=== PATIENT | male | born 1950 | race Caucasian/White ===

== ENCOUNTER 2016-12-18 20:02 | Emergency (ER) | payer MEDICARE ==
[2016-12-18] MEDS ORDERED: Hydromorphone 1 mg/ml Ampule IV ONE (20:33)
[2016-12-18] MEDS ORDERED: Phenergan 25 MG INJ IV ONE (20:33)
--- NOTE | 2016-12-18 20:40 | ERPHSYRPT ---
- History of Present Illness Time Seen by Provider: 12/18/16 20:23 Source: patient Exam Limitations: no limitations Physician History: ABOUT 80 MINUTES AGO AT HOME PT WAS WALKING UP STAIRS, LOST HIS BALANCE AND FELL BACKWARDS DOWN 15 STEPS WITH RESULTANT PAIN IN THE HEAD, BACK, CHEST, LEFT HIP, RIGHT KNEE AND ABDOMEN. PT STATES FOR THE PAST 2 DAYS HE HAS BEEN GENERALLY WEAK AND THIRSTY. PT DENIES FEVER, VOMITING, NUMBNESS. Allergies/Adverse Reactions: hydralazine Allergy (Intermediate, Verified 11/04/15 17:04) Rash Penicillins Allergy (Intermediate, Verified 11/04/15 17:04) Rash Home Medications: Aspirin 81 mg PO DAILY 11/18/13 [History] Clopidogrel Bisulfate 75 mg [PLAVIX 75 MG Tablet] 75 mg PO DAILY 11/18/13 [History] Metformin HCl 1000 mg [Glucophage 1000 MG] 1,000 mg PO BID 11/18/13 [History] Atorvastatin Calcium [Lipitor] 80 mg PO DAILY 11/04/15 [History] Glimepiride 1 mg PO DAILY 11/04/15 [History] Lisinopril 20 mg PO DAILY 11/04/15 [History] Metoprolol Tartrate 50 mg [Lopressor 50 MG] 50 mg PO BID 11/04/15 [History ] Niacin 1,000 mg PO BID 08/07/16 [History] Pantoprazole 40 mg [Protonix 40 mg IV] 40 mg PO DAILY 08/07/16 [History] Sucralfate 1 gm [Carafate 1 GM] 1 gm PO QID 08/07/16 [History] Vilazodone Hydrochloride [Viibryd] 40 mg PO DAILY 08/07/16 [History] Hx Tetanus, Diphtheria Vaccination/Date Given: Yes Hx Influenza Vaccination/Date Given: Yes Hx Pneumococcal Vaccination/Date Given: Yes - Review of Systems Constitutional: Weakness (GENERALIZED), Other (THIRST), No Fever Respiratory: Dyspnea (CHRONIC) Cardiac: Chest Pain Abdominal/Gastrointestinal: No Vomiting Musculoskeletal: Back Pain, Joint Pain (RIGHT KNEE) Neurological: Headache, No Sensory Changes All Other Systems: Reviewed and Negative - Past Medical History Pertinent Past Medical History: Yes Neurological History: No Pertinent History ENT History: No Pertinent History Cardiac History: High Cholesterol, Hypertension, Myocardial Infarction ([place]) Respiratory History: COPD, Lung Cancer Endocrine Medical History: Diabetes Type II Musculoskeletal History: No Pertinent History GI Medical History: No Pertinent History History: No Pertinent History Psycho-Social History: No Pertinent History Male Reproductive Disorders: No Pertinent History Other Medical History: pt has received chemo and radiation for lung cancer. - Past Surgical History Past Surgical History: Yes Neuro Surgical History: No Pertinent History Cardiac: CABG, Cardiac Catheterization, Cardiac Stent Respiratory: No Pertinent History Gastrointestinal: No Pertinent History Genitourinary: No Pertinent History Musculoskeletal: No Pertinent History Male Surgical History: No Pertinent History - Social History Smoking Status: Current every day smoker How long have you smoked: 50 years Exposure to second hand smoke: No Drug Use: none Patient Lives Alone: No - Nursing Vital Signs Nursing Vital Signs: Initial Vital Signs Temperature 101.0 F Temperature Source Rectal Pulse Rate 107 Respiratory Rate 22 Blood Pressure [] 104/57 Pain Intensity 3 - Luis Fernando Coma Score Best Eye Response (Luis Fernando): (4) open spontaneously Best Verbal Response ([place]): (5) oriented Best Motor Response (Luis Fernando): (6) obeys commands Luis Fernando Total: 15 - Physical Exam General Appearance: alert Head Injury: tenderness (MILD TENDERNESS OVER AN ABRASION ON THE SUPERIOR POSTERIOR ASPECT OF THE RIGHT PARIETUM WITH MILD EDEMA.) Eye Exam: PERRL/EOMI ENT Exam: airway nml, hearing grossly normal Neck Exam: trachea midline Respiratory/Chest Exam: chest tenderness (LEFT RIB TENDERNESS WITHOUT CREPITUS) Cardiovascular Exam: normal heart sounds Gastrointestinal Exam: soft, normal bowel sounds, tenderness (MILD LEFT SIDED ABDOMINAL TENDERNESS) Back Exam: other (MILD TENDERNESS OVER THE LEFT SIDE OF THE BACK ) Extremity Exam: tenderness (MILD RIGHT KNEE TENDERNESS OVER A 2 CM ABRASION) Peripheral Pulses: dorsalis-pedis (R): 1+, dorsalis-pedis (L): 1+ Neurologic Exam: alert, cooperative Skin Exam: warm, dry - Course Nursing assessment & vital signs reviewed: Yes EKG Interpreted by Me: RATE ([id number]), Sinus Tach, NORMAL AXIS, NORMAL INTERVALS, ST Elev (V1 & V2(DR DURAN(PT'S TRAVELER CHANGER) REVIEWED EKG AND STATES IT IS NOT A STEMI THAT IT IS OLD).) - Radiology Exams Right Knee X-ray Interpretation: Interpreted by me, No Fracture - CT Exams Head CT Interpretation: Tele-radiologist Report (NO ACUTE FINDINGS) Cervical Spine CT Interpretation: Tele-radiologist Report (NO ACUTE FINDINGS.) Chest CT Interpretation: Tele-radiologist Report (10 MM NONCALCIFIED NODULE WITHIN THE RIGHT UPPER LOBE POSTERIORLY. 7 MM NONCALCIFIED NODULE WITHIN THE RIGHT LOWER LOBE. PATCHY CONSOLIDATIONS WITHIN THE POSTERIOR ASPECT OF THE RIGHT LOWER LOBE, POSSIBLY MULTIFOCAL PNEUMONIA.) Abdomen/Pelvis CT Interpretation: Tele-radiologist Report (NO ACUTE ABDOMINAL OR PELVIC ABNORMALITY. PATCHY CONSOLIDATIONS WITHIN THE POSTERIOR RIGHT LOWER LOBE, LIKELY MULTIFOCAL PNEUMONIA.) Ordered Tests: Active Orders 24 hr Category Date Time Status Curator Of Collections STAT Care 12/18/16 20:32 Active Clean Catch Urine Specimen STAT Care 12/18/16 22:35 Active EKG-ER Only STAT Care 12/18/16 20:32 Active EKG-ER Only STAT Care 12/18/16 23:38 Active IV Insertion STAT Care 12/18/16 20:32 Active Oxygen-ED Only NASAL CANNULA 3 lpm Care 12/18/16 20:32 Active Pulse Oximetry (ED) STAT Care 12/18/16 20:32 Active ABDOMEN AND PELVIS W/0 CONTRAS [CT] Stat Exams 12/18/16 20:31 Taken CERVICAL SPINE WO CONTRAST [CT] Stat Exams 12/18/16 20:31 Taken CHEST WITHOUT CONTRAST [CT] Stat Exams 12/18/16 20:32 Taken HEAD WITHOUT CONTRAST [CT] Stat Exams 12/18/16 20:31 Taken KNEE (3 VIEWS) Stat Exams 12/18/16 23:13 Taken AMYLASE Stat Lab 12/18/16 20:40 Completed BLOOD CULTURE Stat Lab 12/19/16 00:01 Ordered CBC W DIFF Stat Lab 12/18/16 20:40 Completed CMP Stat Lab 12/18/16 20:40 Completed CULTURE,SPUTUM Stat Lab 12/19/16 00:01 Uncollected CULTURE,URINE Stat Lab 12/18/16 20:32 Received LIPASE Stat Lab 12/18/16 20:40 Completed MAGNESIUM Stat Lab 12/18/16 20:40 Completed Manual Differential NC Stat Lab 12/18/16 20:40 Completed PROTIME WITH INR Stat Lab 12/18/16 20:40 Completed PTT Stat Lab 12/18/16 20:40 Completed TROPONIN Stat Lab 12/18/16 20:50 Completed UA W/ MICROSCOPIC Stat Lab 12/18/16 20:32 Completed Medication Summary Generic Name Dose Route Start Last Admin Trade Name Windy PRN Reason Stop Dose Admin Sodium Chloride 1,000 mls @ 100 mls/hr 12/18/16 20:45 12/18/16 20:48 Sodium Chloride 0.9% 1000 Ml IV 01/17/17 20:44 100 mls/hr .Q10H HARMAN Administration Discontinued Medications Generic Name Dose Route Start Last Admin Trade Name Windy PRN Reason Stop Dose Admin Hydromorphone HCl 0.5 mg 12/18/16 20:33 12/18/16 20:47 Hydromorphone 1 Mg/Ml Ampule IV 12/18/16 20:34 0.5 mg STAT ONE Administration Hydromorphone HCl Confirm 12/18/16 20:44 Hydromorphone 1 Mg/Ml Ampule Administered 12/18/16 20:45 Dose 1 mg .ROUTE .STK-MED ONE Levofloxacin/Dextrose 500 mg in 100 mls @ 100 mls/hr 12/18/16 23:03 12/18/16 23:10 Levofloxacin 500mg/100ml D5w IV 12/19/16 00:02 100 mls/hr STAT STA Administration Levofloxacin/Dextrose Confirm 12/18/16 23:09 Levofloxacin 500mg/100ml D5w Administered 12/18/16 23:10 Dose 500 mg in 100 mls @ ud IV .STK-MED ONE Magnesium Sulfate/Dextrose 100 mls @ 200 mls/hr 12/18/16 23:14 Magnesium 1 Gm / 100 Ml D5w IV 12/18/16 23:43 STAT ONE Magnesium Sulfate/Dextrose Confirm 12/18/16 23:22 Magnesium 1 Gm / 100 Ml D5w Administered 12/18/16 23:23 Dose 100 mls @ ud IV .STK-MED ONE Levalbuterol HCl 1.25 mg 12/19/16 00:01 Xopenex 1.25 Mg/0.5 Ml Ud Nebule IH 12/19/16 00:02 STAT ONE Promethazine HCl 6.25 mg 12/18/16 20:33 12/18/16 20:48 Phenergan 25 Mg Inj IV 12/18/16 20:34 6.25 mg STAT ONE Administration Promethazine HCl Confirm 12/18/16 20:44 Phenergan 25 Mg Inj Administered 12/18/16 20:45 Dose 25 mg .ROUTE .STK-MED ONE Lab/Rad Data: Laboratory Result Diagrams 12/18/16 20:40 12/18/16 20:40 Laboratory Results 12/18/16 12/18/16 12/18/16 Range/Units 20:50 20:40 20:40 WBC (4.0-10.5) K/mm3 RBC (4.1-5.6) M/mm3 Hgb (12.5-18.0) gm/dl Hct (42-50) % MCV (78-100) fl MCH (26-32) pg MCHC (32-36) g/dl RDW (11.5-14.0) % Plt Count (150-450) K/mm3 MPV (6-9.5) fl INR 1.21 (0.8-3.0) APTT 34.8 (24.1-36.1) SECONDS Sodium 136 (136-145) mEq/L Potassium 3.8 (3.5-5.1) mEq/L Chloride 102 (98-107) mEq/L Carbon Dioxide 20.5 L (21-32) mEq/L Anion Gap 16.8 H (5-15) MEQ/L BUN 19 (9-20) mg/dL Creatinine 1.68 H (0.55-1.30) mg/dl Estimated GFR 44 ML/MIN Glucose 109 (70-110) MG/DL Calcium 8.7 (8.5-10.1) mg/dL Magnesium 1.1 L (1.8-2.4) mg/dL Total Bilirubin 0.30 (0.2-1.0) mg/dL AST 25 (15-37) U/L ALT 14 (12-78) U/L Alkaline Phosphatase 72 (46-116) U/L Troponin I 0.061 H* (0.000-0.056) ng/ml Serum Total Protein 7.5 (6.4-8.2) gm/dL Albumin 1.7 L (3.4-5.0) g/dL Amylase 37 (25-115) U/L Lipase 71 L (73-393) U/L Ur Collection Type Urine Color (YELLOW) Urine Appearance (CLEAR) Urine pH (5-6) Ur Specific [place] (1.005-1.025) Urine Protein (Negative) Urine Glucose (UA) (NEGATIVE) mg/dL Urine Ketones (NEGATIVE) Urine Nitrite (NEGATIVE) Urine Bilirubin (NEGATIVE) Urine Urobilinogen (0-1) mg/dL Urine WBC (Auto) (NEGATIVE) Urine RBC (Auto) (0-5) [place]/ul Urine Microscopic WBC (0-5) /HPF Ur Epithelial Cells (FEW) /HPF Urine Bacteria (NEGATIVE) /HPF Specimen Received 12/18/16 12/18/16 Range/Units 20:40 20:32 WBC 15.6 H (4.0-10.5) K/mm3 RBC 3.88 L (4.1-5.6) M/mm3 Hgb 10.9 L (12.5-18.0) gm/dl Hct 35.1 L (42-50) % MCV 90.5 (78-100) fl MCH 28.0 (26-32) pg MCHC 31.1 L (32-36) g/dl RDW 14.9 H (11.5-14.0) % Plt Count 213 (150-450) K/mm3 MPV 8.7 (6-9.5) fl INR (0.8-3.0) APTT (24.1-36.1) SECONDS Sodium (136-145) mEq/L Potassium (3.5-5.1) mEq/L Chloride (98-107) mEq/L Carbon Dioxide (21-32) mEq/L Anion Gap (5-15) MEQ/L BUN (9-20) mg/dL Creatinine (0.55-1.30) mg/dl Estimated GFR ML/MIN Glucose (70-110) MG/DL Calcium (8.5-10.1) mg/dL Magnesium (1.8-2.4) mg/dL Total Bilirubin (0.2-1.0) mg/dL AST (15-37) U/L ALT (12-78) U/L Alkaline Phosphatase (46-116) U/L Troponin I (0.000-0.056) ng/ml Serum Total Protein (6.4-8.2) gm/dL Albumin (3.4-5.0) g/dL Amylase (25-115) U/L Lipase (73-393) U/L Ur Collection Type CLEAN CATCH Urine Color YELLOW (YELLOW) Urine Appearance CLOUDY (CLEAR) Urine pH 6.0 (5-6) Ur Specific [place] 1.025 (1.005-1.025) Urine Protein >=300 (Negative) Urine Glucose (UA) 250 (NEGATIVE) mg/dL Urine Ketones NEGATIVE (NEGATIVE) Urine Nitrite NEGATIVE (NEGATIVE) Urine Bilirubin NEGATIVE (NEGATIVE) Urine Urobilinogen 1 (0-1) mg/dL Urine WBC (Auto) NEGATIVE (NEGATIVE) Urine RBC (Auto) MODERATE (0-5) [place]/ul Urine Microscopic WBC 25-50 (0-5) /HPF Ur Epithelial Cells FEW (FEW) /HPF Urine Bacteria FEW (NEGATIVE) /HPF Specimen Received [id number] - Progress Discussed with Dr.: Other (SPOKE WITH DR LAU(HOSPITALIST AT [facility])([id number]) WHO ACCEPTED PT FOR TRANSFER TO [facility] A DIRECT ADMISSION.) - Departure Time of Disposition: 00:09 Departure Disposition: Transfer ([facility]) Clinical Impression: FALL, RLL PNEUMONIA, HEAD CONTUSION, BACK STRAIN, CHEST & ABDOMINAL PAIN, ABRASION OF RIGHT KNEE, HYPOMAGNESEMIA, ELEVATED TROPONIN Condition: Stable Critical Care Time: Yes Critical Care Time(excluding separately billable procedures): 30-74 minutes Referrals: OLY SANZ [Primary Care Provider] -
[2016-12-18] MEDS ORDERED: Hydromorphone 1 mg/ml Ampule ONE (20:44)
[2016-12-18] MEDS ORDERED: Phenergan 25 MG INJ ONE (20:44)
[2016-12-18] MEDS ORDERED: Sodium Chloride 0.9% 1000 ML 1,000 ML ONE (20:44)
[2016-12-18] MEDS ORDERED: Sodium Chloride 0.9% 1000 ML 1,000 ML IV SCH (20:45)
[2016-12-18 20:52] LABS: Mean Cell Volume 90.5 fl (78-100); Mean Platelet Volume 8.7 fl (6-9.5); Platelet Count 213 K/mm3 (150-450); Red Blood Count 3.88 M/mm3 (4.1-5.6); Red Cell Distribution Width 14.9 % (11.5-14.0); White Blood Count 15.6 K/mm3 (4.0-10.5)
[2016-12-18 21:08] LABS: INR 1.21 (0.8-3.0); PROTIME 13.5 SECONDS (8.83-12.87)
[2016-12-18 21:10] LABS: PTT 34.8 SECONDS (24.1-36.1)
[2016-12-18 21:21] LABS: ALBUMIN 1.7 g/dL (3.4-5.0); ANION GAP 16.8 MEQ/L (5-15); BILIRUBIN,TOTAL 0.3 mg/dL (0.2-1.0); Carbon Dioxide 20.5 mEq/L (21-32); MAGNESIUM 1.1 mg/dL (1.8-2.4); Potassium 3.8 mEq/L (3.5-5.1); Total Protein 7.5 gm/dL (6.4-8.2)
[2016-12-18 22:59] LABS: Collection Type CLEAN CATCH
[2016-12-18 23:01] LABS: Bacteria FEW /HPF (NEGATIVE); COMPLETE URINE MICROSCOPIC? YES; Epithelial Cells FEW /HPF (FEW); WBC 25-50 /HPF (0-5)
[2016-12-18 23:02] LABS: ADD URINE CULTURE? YES (NO)
[2016-12-18] MEDS ORDERED: Levofloxacin 500MG/100ML D5W 500 MG/100 ML BAG IV STA (23:03)
[2016-12-18] MEDS ORDERED: Levofloxacin 500MG/100ML D5W 500 MG/100 ML BAG IV ONE (23:09)
[2016-12-18] MEDS ORDERED: Magnesium 1 Gm / 100 Ml D5W*** 100 ML IV ONE ×2 (23:14→23:22)
[2016-12-19] MEDS ORDERED: Xopenex 1.25 MG/0.5 ML UD NEBULE IH ONE ×2 (00:01→00:12)
[2016-12-19] MEDS ORDERED: Sodium Chloride 3 ML UD NEBULES IH ONE (00:12)
[2016-12-19 00:20] VITALS: BP 107/75; PULSE 102; O2SAT 98
[2016-12-19 01:06] LABS: Total Cells Counted 100
[2016-12-19 01:07] LABS: Platelet Estimate NORMAL (NORMAL)
--- NOTE | 2016-12-19 15:03 | XRAY ---
Exam: CT of the head without IV contrast from 12/18/2016. CTDI: 50.14 Comparison: None. Indication: Patient fell backwards down stairs, complains of head, back, neck, abdomen, and chest pain. Technique: Non-IV contrast axial images were obtained through the brain. Reconstructed coronal and sagittal images were created and reviewed. Findings: The ventricles appear of unremarkable size and configuration. No focal mass effect or midline shift is seen. No acute intracranial bleed or abnormal extra-axial fluid collection is seen. No focal low attenuation lesion is seen to suggest an infarct within the major cerebral or cerebellar territorial tribulation. I believe there are some mild chronic bilateral periventricular small vessel ischemic changes. There is occasional prominence of the cortical sulci. The calvarium of the skull appears intact revealing no fracture or other significant lesion. Both maxillary sinuses are completely opacified. Also, there is extensive soft tissue density and mucosal thickening within the ethmoid sinus complexes bilaterally. Minor peripheral mucosal thickening is seen within the sphenoid sinus. No air-fluid levels are seen. There is some minimal mucosal thickening or fluid within the posterior dependent portion of the left mastoid air cells on axial image #9 and #10. This may be chronic. There is a paucity of air cells within the right mastoid sinus. I believe there is some soft tissue density or fluid within the middle ear cavity on the right. See axial images #13 and #14. There is also some mild soft tissue density or fluid within the minimal mastoid sinus on the right. Impression: 1. No acute intracranial bleed or other acute intracranial brain process is seen. 2. Extensive paranasal sinus disease is seen within both maxillary sinuses and ethmoid sinuses. This may be chronic. However, correlate clinically. 3. Soft tissue density or fluid is seen within the right middle ear cavity. Correlate clinically. I also believe there is a paucity of right mastoid sinus air cells with a small amount of fluid/soft tissue density within both mastoids, right greater than left. Correlate clinically.
--- NOTE | 2016-12-19 15:46 | XRAY ---
Exam: CT of the cervical spine without IV contrast from 12/18/2016. CTDI: 138.51 Comparison: None. Indication: Patient fell backwards down steps, complains of neck pain and weakness. Technique: Non-IV contrast axial images were obtained through the cervical spine. Reconstructed coronal and sagittal images were created and reviewed. Findings: I see no evidence of acute cervical spine fracture, AP traumatic subluxation, or prevertebral soft tissue swelling. There is a suggestion of slight retrolisthesis of C3 with respect to C2 and C4 on the midline sagittal images, but I believe this is probably due to the significant degenerative joint disease. Mild to moderate anterior lateral vertebral endplate spurring is seen throughout the cervical spine. The cervical interspaces are not significantly narrowed. However, I also note scattered facet joint degenerative changes at C2-C3 (left greater than right) as well as marked C4-C5 facet joint arthritis on the right and mild bilateral C5C6 facet joint osteoarthritis. I believe the significant right-sided C4-C5 facet joint spurring is causing marked compromise of the right C4-C5 neural foramen. There is also moderate narrowing of the right C3-C4 neural foramen. Advanced degenerative change of the right C3-C4 uncovertebral joint is seen. I also note mild degenerative change involving the right C4-C5 uncovertebral joint. Slight convexity of the mid cervical spine toward the left is seen centered at the upper aspect of C5 on the coronal images. The thyroid gland appears grossly unremarkable. The right internal jugular vascular line is partially seen. Some emphysematous changes are noted within both visualized lung apices. Bilateral carotid artery vascular calcification is seen. Impression: 1. No acute cervical spine fracture or AP traumatic subluxation is seen. 2. Moderate diffuse degenerative joint disease is seen throughout the cervical spine, as discussed above. This probably accounts for slight retrolisthesis of C3 with respect to C2 and C4. I note moderate narrowing of the right C3-C4 neural foramen and marked narrowing of the right C4-C5 neural foramen secondary to the degenerative joint disease and spurring..
--- NOTE | 2016-12-19 17:02 | XRAY ---
Exam: CT of the chest without IV contrast from 12/18/2016. CTDI: 17.77 Comparison: AP portable chest film from 11/18/2013. Indication: Patient fell backwards down stairs, complains of back and chest pain. Technique: Non-IV contrast axial images were obtained through the chest. Reconstructed coronal and sagittal images were created and reviewed. Findings: The CT loss mitigation specialist image reveals a right-sided portacatheter with the tip extending into the SVC. Multiple sternal wires are seen consistent with prior CABG. There is minimal elevation of the right hemidiaphragm. On the CT images, the heart size is normal without pericardial effusion. Extensive upper [place] coronary artery vascular calcification is seen. I also note some atherosclerotic vascular calcification within the thoracic aorta and its branches. No aneurysm is seen. Some scattered, small, probable reactive mediastinal lymph nodes are noted. A few granulomatous calcifications are seen within the AP window on the left and the subcarinal region on axial image #28. I note some mild patchy infiltrate within the posterior aspect of the right upper lobe, and to a greater extent, within the posterior aspect of the right lower lobe. I favor that this is due to multifocal pneumonia rather than parenchymal lung contusion with pulmonary hemorrhage. I see no pleural effusion or fracture ribs on this side. In addition, on axial image #22 there is a 12 mm noncalcified nodule within the posterior aspect of the right upper lobe. Comparison with any previous images is recommended. There is also a questionable 6 mm nodule posterolaterally within the right upper lobe in a bit more superior position on axial image #16. Within the right lower lobe posteriorly on axial image #31 there is a 0.8 cm in diameter lung nodule. There is also a 0.8 cm in diameter oval-shaped nodular density posterior laterally within the right lower lobe on axial image #29. A few small granulomatous calcifications are seen within the lingula. In addition, there is some focal scarring or infiltrate/atelectasis at the anterior medial aspect of the left upper lobe. Pneumonia cannot be completely excluded at this site as well. No soft tissue lung nodules are seen within the left lung. The lungs are mildly emphysematous. The central airways are patent. No pneumothorax or pleural fluid is seen. There is a 4.5 cm x 3.8 cm oval-shaped, fatty mass within the right adrenal gland measuring -37.4 Hounsfield units. This probably represents an adrenal myelolipoma. The remainder of the adrenal glands appears unremarkable. Some scattered granulomatous calcifications are seen within the liver and spleen. No other acute process is seen within the upper abdomen. No acute fracture or aggressive bone lesion is seen. There is minimal anterior wedge compression of the T8 vertebral body which appears old. See sagittal image #78. Impression: 1. There is multifocal patchy airspace infiltrate within the posterior lateral aspect of the right lower lobe. I favor that this is due to right lower lobe pneumonia rather than right lower lobe pulmonary hemorrhage. There is no associated fracture or pleural effusion. Correlate clinically. In addition, I believe there is also some subtle infiltrate within the posterior aspect of the right upper lobe. There is probable scarring or atelectasis at the anterior medial left upper lobe. However, pneumonic infiltrate is also possible. 2. Pulmonary emphysema. 3. There are at least 2, and possibly up to 4, soft tissue nodules within the right upper lobe and right lower lobe, as described above. Malignant/metastatic lung disease is suggested by this appearance. Follow-up will be needed. Comparison with any previous chest CT studies would be helpful. 5. 4.5 cm x 3.8 cm probable myolipoma within the right adrenal gland measuring -37.4 Hounsfield units.
--- NOTE | 2016-12-19 17:21 | XRAY ---
Exam: CT of the abdomen and pelvis without IV contrast from 12/18/2016. CTDI: 20.45 Comparison: None. Indication: Patient fell backwards down stairs, complains of back and abdominal pain. Technique: Non - IV contrast axial images were obtained through the abdomen and pelvis. Reconstructed coronal and sagittal images were created and reviewed. Findings: The visualized lung bases again reveal multifocal patchy airspace infiltrates within the right lower lobe suspicious for pneumonia. Correlate clinically. The liver is of normal size and reveals some scattered calcified granulomas consistent with old granulomatous disease. No liver mass or biliary duct distention is seen on this non-IV contrast study. The gallbladder appears grossly unremarkable and reveals no dense calcification within it. The spleen is of normal size and reveals some scattered calcified granulomas as well. The pancreas appears normal. I again note an oval-shaped fatty mass measuring 4.6 mm is by 3.3 cm within the right adrenal gland. This measures -34.6 Hounsfield units. It is likely at this represents an adrenal myelolipoma. The left adrenal gland appears unremarkable. The kidneys are unremarkable size and reveal no hydronephrosis, definite mass, or renal calculi. Moderate atherosclerotic vascular calcification is seen within the abdominal aorta and its branches. The distal abdominal aorta just above the aortic bifurcation dilates slightly to 3.0 cm in width and 3.0 cm in depth. See coronal image #32 and sagittal image #105. No abnormal retroperitoneal lymphadenopathy is seen. No free intraperitoneal air is evident. The anterior abdominal wall appears intact. The bowel is not distended. Distal descending and sigmoid colon diverticulosis without evidence of diverticulitis is seen. The appendix appears normal within the right lower quadrant. No free fluid is seen. Pelvic lymph nodes are not enlarged. The urinary bladder appears unremarkable. The seminal vesicles appear normal. There is some calcification within the posterior central aspect of the prostate gland. The prostate gland measures 5.0 cm in width and 4.4 cm in AP depth on axial image #78. This is slightly enlarged. Iliac artery and common femoral artery vascular calcification is seen. The inguinal regions appear unremarkable. No acute fracture or suspicious bone lesion is seen. There is mild chronic appearing compression deformity of the superior aspect of the L5 vertebral body on the sagittal images. See sagittal image #106. This appears old. Moderate anterior lateral vertebral endplate spurring is seen within the lower thoracic and upper lumbar spine. Impression: 1. I again note multiple focal patchy airspace disease within the right lower lobe most suggestive of pneumonia. 2. I believe there is minimal focal aneurysmal enlargement of the distal abdominal aorta just above the aortic bifurcation which measures 3.0 cm in width and 3.0 cm in AP depth. 3. 4.6 cm x 3.3 cm probable right adrenal myelolipoma. 4. Mild distal colonic diverticulosis without evidence of diverticulitis. 5. Slight enlargement of the prostate gland. 6.. No acute intra-abdominal or pelvic process is seen. No free fluid or free air is noted. 7. No acute fracture is identified.
--- NOTE | 2016-12-19 19:55 | XRAY ---
Exam: Portable 3 view study of the right knee from 12/18/2016. Comparison: None. Indication: Fall. Findings: AP, internal oblique, and crosstable lateral images of the right knee were obtained. I see no acute fracture, dislocation, or suprapatellar joint effusion. There is mild narrowing of the medial compartment of the right knee joint with associated small osteophytes medially. The lateral compartment of the right knee joint appears well preserved. The patellofemoral joint appears unremarkable on the crosstable lateral view. Moderate atherosclerotic vascular calcification is seen posterior to the right knee. Impression: 1. No acute right knee fracture, dislocation, or suprapatellar joint effusion is seen. 2. Mild medial compartment osteoarthritis of the right knee. 3. Moderate atherosclerotic vascular calcification is seen posterior to the right knee within the distal superficial femoral artery, popliteal artery, and proximal calf arteries.
== END 2016-12-19 00:43 | disposition short-term general hospital (02) ==
LOC: ED 20:02
DX: J18.8 Other pneumonia, unspecified organism (principal); S00.93XA Contusion of unspecified part of head, initial encounter; S16.1XXA Strain of muscle, fascia and tendon at neck level, initial encounter; S39.012A Strain of muscle, fascia and tendon of lower back, initial encounter; S29.012A Strain of muscle and tendon of back wall of thorax, initial encounter; R07.89 Other chest pain; R10.9 Unspecified abdominal pain; S80.211A Abrasion, right knee, initial encounter; E83.42 Hypomagnesemia; R79.89 Other specified abnormal findings of blood chemistry; W10.9XXA Fall (on) (from) unspecified stairs and steps, initial encounter
CPT/HCPCS: 36000; 36415; 70450; 71250; 72125; 73562; 74176; 80053; 81000; 82150; 83690; 83735; 84484; 85025; 85610; 85730; 87040; 87086; 93005; 93041; 94640; 96360; 96361; 96365; 96367; 96374; 96375; 99285; J1170; J1956; J2550; J3475; A9270-GY

== ENCOUNTER 2017-01-24 21:14 | Emergency (ER) | payer MEDICARE ==
[2017-01-24] MEDS ORDERED: Sodium Chloride 0.9% 1000 ML 1,000 ML IV STA ×2 (21:27→23:30)
[2017-01-24] MEDS ORDERED: Sodium Chloride 0.9% 1000 ML 1,000 ML ONE ×2 (21:42→23:47)
[2017-01-24 21:43] LABS: Mean Corpuscular Hemoglobin 28.2 pg (26-32); Mean Platelet Volume 8.4 fl (6-9.5); Platelet Count 201 K/mm3 (150-450); Red Blood Count 3.33 M/mm3 (4.1-5.6); Red Cell Distribution Width 15.9 % (11.5-14.0); White Blood Count 16.8 K/mm3 (4.0-10.5)
--- NOTE | 2017-01-24 21:59 | ERPHSYRPT ---
- History of Present Illness Time Seen by Provider: 01/24/17 21:59 Patient Subjective Stated Complaint: PT STATES HE BEGAN HAVING VOMITING, DIARRHEA, AND ABDOMINAL PAIN THIS EVENING AROUND 1830. PT REPORTS DIARRHEA STOOLS X5 TIMES AND VOMITING ONE TIME. PT ALSO COMPLAINS OF PAIN TO THE LUQ OF THE ABDOMEN. Triage Nursing Assessment: PT IS AOX3, ARRIVED PER EMS, PT IS CHRONICALLY SHORT OF BREATH, LUNG SOUNDS ARE COARSE THROUGHOUT, ANTERIOR AND POSTERIOR. SKIN IS PALE AND DRY. ABDOMEN IS SOFT AND NON TENDER, BOWEL SOUNDS PRESENT AND NORMOACTIVEX4. PULSES ARE STRONG AND EQUAL. 2+ PEDAL EDEMA IS PRESENT BILATERALLY. THERE IS DRIED,YELLOW VOMITUS PRESENT ON THE PT FACE AND NECK. ALSO SHORTS APPEAR TO BE SOILED WITH LOOSE, BROWN STOOL. PT HAS POOR OVERALL HYGIENE. Physician History: 66-year-old male with significant past medical history of left-sided lung cancer , hypertension, coronary artery disease. Was in his usual state of health since yesterday, started having cough, fevers, chills, nausea, vomiting and diarrhea, so he was brought into the emergency room at [facility] Timing/Duration: yesterday Activities at Onset: none Associated Symptoms: diarrhea, fever/chills, fatigue, nausea, shortness of breath, vomiting, weakness Previous symptoms: same symptoms as today, recent hospitalization Allergies/Adverse Reactions: hydralazine Allergy (Intermediate, Verified 01/20/17 15:54) Rash Penicillins Allergy (Intermediate, Verified 01/20/17 15:54) Rash ezetimibe [From Zetia] Allergy (Verified 01/20/17 15:54) Rash rosuvastatin [From Crestor] Adverse Reaction (Verified 01/20/17 15:54) Home Medications: Albuterol Sulfate 2.5 mg IH QID 01/24/17 [History] Aspirin 81 gm Chew [Baby Aspirin 81 mg Chew] 81 mg PO DAILY 01/24/17 [ History] Atorvastatin Calcium 80 mg PO HS 01/24/17 [History] Clonidine HCl 0.1 mg [Catapres 0.1 MG] 0.1 mg PO TID 01/24/17 [History] Clopidogrel Bisulfate 75 mg [PLAVIX 75 MG Tablet] 75 mg PO DAILY 01/24/17 [History] Fluticasone Propionate [Flovent Diskus] 50 mcg IH UD PRN 01/24/17 [History] Fluticasone/Vilanterol [Breo Ellipta 200-25 Mcg INH] 1 each IH UD PRN 01/24/17 [ History] Furosemide 20 mg [Lasix 20 mg] 20 mg PO BID 01/24/17 [History] Glimepiride 1 mg PO DAILY 01/24/17 [History] Lisinopril 10 mg [Zestril 10 MG] 10 mg PO BID 01/24/17 [History] Metformin HCl [Fortamet] 1,000 mg PO BID 01/24/17 [History] Metoprolol Tartrate 50 mg [Lopressor 50 MG] 50 mg PO DAILY 01/24/17 [ History] Niacin [Niacin ER] 1,000 mg PO BID 01/24/17 [History] Oxycodone HCl/Acetaminophen [Oxycodone-Acetaminophen 5-325] 1 each PO UD [History] Pantoprazole 40 mg [Protonix 40 mg IV] 40 mg IV DAILY 01/24/17 [History] Potassium Chloride 10 Meq Tab* [Klor Con 10 MEQ] 10 meq PO BID 01/24/17 [ History] Sucralfate 1 gm [Carafate 1 GM] 1 gm PO QID 01/24/17 [History] Vilazodone Hydrochloride [Viibryd] 1 each PO DAILY 01/24/17 [History] Hx Tetanus, Diphtheria Vaccination/Date Given: Yes Hx Influenza Vaccination/Date Given: Yes Hx Pneumococcal Vaccination/Date Given: Yes Immunizations Up to Date: Yes - Review of Systems Constitutional: Fever, Chills, Fatigue, Weakness Eyes: No Symptoms Ears, Nose, & Throat: No Symptoms Respiratory: Cough, Dyspnea, Dyspnea on Exertion (SINGH) Cardiac: No Chest Pain, No Edema, No Syncope Abdominal/Gastrointestinal: Abdominal Pain, Nausea, Vomiting, Diarrhea Genitourinary Symptoms: No Dysuria Musculoskeletal: No Back Pain, No Neck Pain Skin: No Rash Neurological: No Dizziness, No Focal Weakness, No Sensory Changes Psychological: No Symptoms Endocrine: No Symptoms All Other Systems: Reviewed and Negative - Past Medical History Pertinent Past Medical History: Yes Neurological History: No Pertinent History ENT History: No Pertinent History Cardiac History: High Cholesterol, Hypertension, Myocardial Infarction ([place]) Respiratory History: COPD, Lung Cancer Endocrine Medical History: Diabetes Type II Musculoskeletal History: No Pertinent History GI Medical History: No Pertinent History History: No Pertinent History Psycho-Social History: No Pertinent History Male Reproductive Disorders: No Pertinent History Other Medical History: pt has received chemo and radiation for lung cancer. - Past Surgical History Past Surgical History: Yes Neuro Surgical History: No Pertinent History Cardiac: CABG, Cardiac Catheterization, Cardiac Stent Respiratory: No Pertinent History Gastrointestinal: No Pertinent History Genitourinary: No Pertinent History Musculoskeletal: No Pertinent History Male Surgical History: No Pertinent History - Social History Smoking Status: Current every day smoker How long have you smoked: 50 Exposure to second hand smoke: No Drug Use: none Patient Lives Alone: No - Nursing Vital Signs Nursing Vital Signs: Initial Vital Signs Temperature 97.9 F Temperature Source Oral Pulse Rate 96 Respiratory Rate 20 Blood Pressure [] 118/70 Pain Intensity 0 - Physical Exam General Appearance: mild distress, alert Eye Exam: PERRL/EOMI, eyes nml inspection Ears, Nose, Throat Exam: normal ENT inspection, dry mucous membranes Neck Exam: normal inspection, non-tender, supple, full range of motion Respiratory Exam: diminished breath sounds, crackles/rales, rhonchi, wheezing, No respiratory distress Cardiovascular Exam: regular rate/rhythm, normal heart sounds Gastrointestinal/Abdomen Exam: soft, No tenderness, No mass Back Exam: normal inspection, No CVA tenderness, No vertebral tenderness Extremity Exam: normal inspection, normal range of motion, pelvis stable Neurologic Exam: alert, oriented x 3, cooperative, sensation nml, No motor deficits, No sensory deficit Skin Exam: normal color, warm, dry SpO2: 92 - Course Nursing assessment & vital signs reviewed: Yes EKG Interpreted by Me: Sinus Rhythm - Radiology Exams Chest X-ray Interpretation: Reviewed by me (bibasilar infiltrate) Ordered Tests: Active Orders 24 hr Category Date Time Status EKG-ER Only STAT Care 01/24/17 21:27 Active CHEST 1 VIEW (PORTABLE) Stat Exams 01/24/17 21:28 Completed AMYLASE Stat Lab 01/24/17 21:41 Completed CBC W DIFF Stat Lab 01/24/17 21:41 Completed CMP Stat Lab 01/24/17 21:41 Completed LIPASE Stat Lab 01/24/17 21:41 Completed Lactic Acid Stat Lab 01/24/17 21:41 Completed Manual Differential NC Stat Lab 01/24/17 21:41 Completed TROPONIN Stat Lab 01/24/17 21:41 Completed UA W/RFX UR CULTURE Stat Lab 01/24/17 21:28 Ordered Urine Triage Profile Stat Lab 01/24/17 21:28 Ordered Medication Summary Discontinued Medications Generic Name Dose Route Start Last Admin Trade Name Windy PRN Reason Stop Dose Admin Sodium Chloride 1,000 mls @ 999 mls/hr 01/24/17 21:27 01/24/17 21:43 Sodium Chloride 0.9% 1000 Ml IV 01/24/17 22:27 999 mls/hr .Q1H1M STA Administration Sodium Chloride Confirm 01/24/17 21:42 Sodium Chloride 0.9% 1000 Ml Administered 01/24/17 21:43 Dose 1,000 mls @ ud .ROUTE .STK-MED ONE Ceftriaxone Sodium/Dextrose 1 g in 50 mls @ 100 mls/hr 01/24/17 22:11 22:43 Rocephin 1 Gm-D5w 50 Ml Bag IV 01/24/17 22:40 100 mls/hr STAT STA Administration Ceftriaxone Sodium/Dextrose Confirm 01/24/17 22:42 Rocephin 1 Gm-D5w 50 Ml Bag Administered 01/24/17 22:43 Dose 1 g in 50 mls @ ud IV .STK-MED ONE Lab/Rad Data: Laboratory Result Diagrams 01/24/17 21:41 01/24/17 21:41 Laboratory Results 01/24/17 01/24/17 01/24/17 Range/Units 21:41 21:41 21:41 WBC 16.8 H (4.0-10.5) K/mm3 RBC 3.33 L (4.1-5.6) M/mm3 Hgb 9.4 L (12.5-18.0) gm/dl Hct 31.3 L (42-50) % MCV 94.0 (78-100) fl MCH 28.2 (26-32) pg MCHC 30.0 L (32-36) g/dl RDW 15.9 H (11.5-14.0) % Plt Count 201 (150-450) K/mm3 MPV 8.4 (6-9.5) fl Sodium 142 (136-145) mEq/L Potassium 4.0 (3.5-5.1) mEq/L Chloride 108 H (98-107) mEq/L Carbon Dioxide 21.9 (21-32) mEq/L Anion Gap 16.4 H (5-15) MEQ/L BUN 20 (9-20) mg/dL Creatinine 1.60 H (0.55-1.30) mg/dl Estimated GFR 46 ML/MIN Glucose 95 (70-110) MG/DL Lactic Acid 1.3 (0.4-2.0) Calcium 9.3 (8.5-10.1) mg/dL Total Bilirubin 0.20 (0.2-1.0) mg/dL AST 22 (15-37) U/L ALT 19 (12-78) U/L Alkaline Phosphatase 110 (46-116) U/L Troponin I 0.035 (0.000-0.056) ng/ml Serum Total Protein 7.0 (6.4-8.2) gm/dL Albumin 2.2 L (3.4-5.0) g/dL Amylase 66 (25-115) U/L Lipase 157 (73-393) U/L - Progress Progress: unchanged Progress Note: 01/24/17 22:24 Last Vital Signs Temp 97.9 F 01/24/17 21:22 Pulse 97 H 01/24/17 21:22 Resp 20 01/24/17 21:22 BP 120/72 01/24/17 21:22 Pulse Ox 92 L 01/24/17 21:59 Allergies hydralazine Allergy (Intermediate, Verified 01/20/17 15:54) Rash Penicillins Allergy (Intermediate, Verified 01/20/17 15:54) Rash ezetimibe [From Zetia] Allergy (Verified 01/20/17 15:54) Rash rosuvastatin [From Crestor] Adverse Reaction (Verified 01/20/17 15:54) Active Medications Sodium Chloride (Sodium Chloride 0.9% 1000 Ml) 1,000 mls @ 999 mls/hr IV .Q1H1M STA Stop: 01/24/17 22:27 Last Admin: 01/24/17 21:43 Dose: 999 mls/hr Ceftriaxone Sodium/Dextrose (Rocephin 1 Gm-D5w 50 Ml Bag) 1 g in 50 mls @ 100 mls/hr IV STAT STA Stop: 01/24/17 22:40 Intake & Output 01/24/17 01/25/17 11:59 11:59 Weight 108.862 kg Orders 01/24/17 21:27 EKG-ER Only STAT NaCl 0.9% 1000 ml [Sodium Chloride 0.9% 1000 ML] 1,000 ml IV 999 mls/hr 01/24/17 21:28 CHEST 1 VIEW (PORTABLE) Stat UA W/RFX UR CULTURE Stat Urine Triage Profile Stat 01/24/17 22:11 Ceftriaxone 1 GM/50 ML PREMIX* [ROCEPHIN 1 Gm-D5w 50 ml Bag] 1 g in 50 ml IV STAT Lab Tests 01/24/17 01/24/17 01/24/17 21:41 21:41 21:41 WBC 16.8 H RBC 3.33 L Hgb 9.4 L Hct 31.3 L MCV 94.0 MCH 28.2 MCHC 30.0 L RDW 15.9 H Plt Count 201 MPV 8.4 Sodium 142 Potassium 4.0 Chloride 108 H Carbon Dioxide 21.9 Anion Gap 16.4 H BUN 20 Creatinine 1.60 H Estimated GFR 46 Glucose 95 Lactic Acid 1.3 Calcium 9.3 Total Bilirubin 0.20 AST 22 ALT 19 Alkaline Phosphatase 110 Troponin I 0.035 Serum Total Protein 7.0 Albumin 2.2 L Amylase 66 Lipase [address].: Other (Dr Us at [facility]) Will see patient in: hospital (full admit), other Counseled pt/family regarding: lab results, diagnosis, need for follow-up, rad results - Departure Time of Disposition: 22:25 Departure Disposition: Transfer Clinical Impression: Pneumonia due to aerobic bacteria Condition: Stable Critical Care Time: Yes Critical Care Time(excluding separately billable procedures): 30-74 minutes Referrals: OLY SANZ [Primary Care Provider] -
[2017-01-24 22:06] LABS: ALBUMIN 2.2 g/dL (3.4-5.0); ANION GAP 16.4 MEQ/L (5-15); BILIRUBIN,TOTAL 0.2 mg/dL (0.2-1.0); Carbon Dioxide 21.9 mEq/L (21-32); TROPONIN 0.035 ng/ml (0.000-0.056)
[2017-01-24] MEDS ORDERED: ROCEPHIN 1 Gm-D5w 50 ml Bag** 1 G/50 ML IVPB IV STA (22:11)
[2017-01-24] MEDS ORDERED: ROCEPHIN 1 Gm-D5w 50 ml Bag** 1 G/50 ML IVPB IV ONE (22:42)
--- NOTE | 2017-01-24 22:42 | XRAY ---
Indication: Nausea, vomiting, and weakness. Comparison: November 18, 2013. Portable chest demonstrates new subtle bibasilar and left perihilar infiltrates versus atelectasis. Heart is not enlarged and demonstrates interval CABG surgery with new right-sided Port-A-Cath. Bony thorax intact.
[2017-01-24 23:24] LABS: ANISOCYTOSIS 1+; BAND 4 % (0.0-2.0); Eosinophil 1 % (0.00-3.0); Platelet Estimate NORMAL (NORMAL); Total Cells Counted 100
[2017-01-24 23:55] VITALS: BP 108/78; PULSE 88; O2SAT 96
[2017-01-25 00:56] LABS: Bacteria FEW /HPF (NEGATIVE); Bilirubin NEGATIVE (NEGATIVE); Blood TRACE NON-HEM Ery/ul (0-5); COMPLETE URINE MICROSCOPIC? YES; Collection Type CCMS; Epithelial Cells FEW /HPF (FEW); Glucose 50 mg/dL (NEGATIVE); Leukocyte Esterase NEGATIVE (NEGATIVE)
[2017-01-25 00:57] LABS: ADD URINE CULTURE? YES (NO)
== END 2017-01-25 00:41 | disposition short-term general hospital (02) ==
LOC: ED 21:14
DX: J15.8 Pneumonia due to other specified bacteria (principal); R11.10 Vomiting, unspecified; R10.12 Left upper quadrant pain; R19.7 Diarrhea, unspecified
CPT/HCPCS: 36415; 71010; 80053; 80307; 81000; 82150; 82962; 83605; 83690; 84484; 85025; 87086; 93005; 96360; 96361; 96365; 96366; 99285; J0696